=== PATIENT | male | born 1975 | race Caucasian/White ===

== ENCOUNTER 2018-02-05 15:45 | Emergency (ER) | payer SELFPAY ==
[~2018-02-05] VITALS: Ht 182.9 cm; Wt 70.6 kg
[2018-02-05 15:46] VITALS: BP 132/90
[2018-02-05] MEDS ORDERED: DIPHENHYDRAMINE 25 MG CAPSULE PO ONE (16:00)
[2018-02-05] MEDS ORDERED: DIPHENHYDRAMINE 25 MG CAPSULE ONE (16:03)
== END 2018-02-05 16:12 | disposition home or self-care (01) ==
LOC: ED 16:00
DX: B86 Scabies (principal)
CPT/HCPCS: 99283; Q0163

== ENCOUNTER 2018-12-05 00:48 | Emergency (ER) | payer SELFPAY ==
[~2018-12-05] VITALS: Ht 182.9 cm; Wt 70.4 kg
[2018-12-05 00:54] VITALS: BP 142/75
[2018-12-05] MEDS ORDERED: SULFAMETH./TRIMETHOPRIM DS 800MG/160MG TABLET ONE (01:22)
--- NOTE | 2018-12-05 01:26 | NUR ---
PT MEDICATED PER MAR
[2018-12-05] MEDS ORDERED: SULFAMETH./TRIMETHOPRIM DS 800MG/160MG TABLET PO ONE (01:30)
[2018-12-05] MEDS ORDERED: DIPH,PERTUSS(ACELL),TET VAC/PF 0.5 ML IM-VACC ONE ×2 (01:35→02:00)
== END 2018-12-05 01:42 | disposition home or self-care (01) ==
LOC: ED 01:40
DX: L03.011 Cellulitis of right finger (principal)
CPT/HCPCS: 90471; 90715